=== PATIENT | male | born 1940 | race Caucasian/White ===

== ENCOUNTER 2016-11-08 06:15 | Day surgery (SDC) | payer MEDICARE, OTHER ==
[~2016-11-08 06:15] MED LIST: ASPIRIN325 M3 PO; FISH OIL 1,0001 EAC9 PO; GLUCOSAMINE HC500 M1 PO; HYDROCHLOROTHIA25 M1 PO; MULTIVITAMIN; NORVASC10 M2 PO; PAMELOR10 M2 PO; PERCOCET 10-321 EACH PO; PRINIVIL20 M1 PO; SYNTHROID25 MC1 PO; TOPROL XL25 M1 PO; VALIUM5 M1 PO; VITAMIN D31000 UNI3 PO; XGEVA120 MG/1.1 SC; XTANDI40 M1 PO; ZOCOR40 M1 PO; [UNRECOGNIZED DRUG - OTHER] PO
[2016-11-08 07:47] LABS: BASO % 0.1 % (0-2); EOS % 1.4 % (0-7); EOSINOPHIL ABSOLUTE COUNT 0.2 tho/cmm (0.0-0.7); HCT-HEMATOCRIT 34.6 % (36.0-53.5); HGB-HEMOGLOBIN 11.9 gm/dl (13.5-17.0); IMMATURE GRANULOCYTES ABSOLUTE 0.03 tho/cmm (0-0.03); IMMATURE GRANULOCYTES PERCENT 0.3 % (0-0.3); LYMPH % 31.6 % (20-45); LYMPH ABSOLUTE COUNT 3.5 tho/cmm (0.8-4.5); MCH (MEAN CORPUSCULAR HGB) 29.9 pg (28.0-32.0); MCHC MEAN CORPUSCULAR HGB CONC 34.4 % (32.0-36.0); MCV (MEAN CELL VOLUME) 86.9 fl (82.0-96.0); MEAN PLATELET VOLUME 10.9 cmc (9.4-12.4); MONO % 7.6 % (0-12); MONOCYTE ABSOLUTE COUNT 0.8 tho/cmm (0.0-1.2); NEUTROPHIL ABSOLUTE COUNT 6.6 tho/cmm (1.6-8.0); NEUTROPHIL-AUTOMATED 6.6 tho/cmm (1.6-8.0); PLATELET COUNT 332 tho/cmm (150-450); RED BLOOD COUNT 3.98 mil/cmm (4.40-5.70); WHITE BLOOD COUNT 11.1 tho/cmm (4.0-10.0)
[2016-11-08 07:57] LABS: ANION GAP 12 mmol/L (0-20); BLOOD UREA NITROGEN 3 mg/dl (6-24); CALCIUM 8.4 mg/dl (8.5-10.5); CARBON DIOXIDE-VENOUS 26 mmol/L (22-32); CHLORIDE 108 mmol/l (96-110); CREATININE 0.54 mg/dl (0.60-1.30); GLUCOSE 107 mg/dL (70-110); POTASSIUM 3.6 mmol/L (3.7-5.1); SODIUM 142 mmol/L (135-145); eGFR VALUE FOR BLACK >90 mL/Min
== END 2016-11-08 10:20 ==
LOC: ENDOS 06:15 → SHSA 06:20 → ENDOS 08:30
PROVIDERS: Anesthesiology
PROC: 0DJD8ZZ Inspection of Lower Intestinal Tract, Via Natural or Artificial Opening Endoscopic (ICD-10-PCS; principal; 2016-11-08)
DX: K57.30 Diverticulosis of large intestine without perforation or abscess without bleeding (principal); K64.0 First degree hemorrhoids; I25.2 Old myocardial infarction; I25.10 Atherosclerotic heart disease of native coronary artery without angina pectoris; I10 Essential (primary) hypertension; M17.0 Bilateral primary osteoarthritis of knee; M16.0 Bilateral primary osteoarthritis of hip; E07.9 Disorder of thyroid, unspecified; F10.10 Alcohol abuse, uncomplicated; Z79.82 Long term (current) use of aspirin; Z79.899 Other long term (current) drug therapy; Z86.73 Personal history of transient ischemic attack (TIA), and cerebral infarction without residual deficits; Z87.11 Personal history of peptic ulcer disease; Z86.010 Personal history of colon polyps; Z85.46 Personal history of malignant neoplasm of prostate; Z87.891 Personal history of nicotine dependence; Z90.49 Acquired absence of other specified parts of digestive tract; Z90.79 Acquired absence of other genital organ(s); Z90.81 Acquired absence of spleen; Z90.10 Acquired absence of unspecified breast and nipple; Z98.1 Arthrodesis status; Z98.890 Other specified postprocedural states